=== PATIENT | female | born 1945 | race Caucasian/White ===

== ENCOUNTER → 2018-01-16 | Outpatient (CLI) | payer OTHER, MEDICAID ==
[~2018-01-16] MED LIST: ASPIR 8181 MG PO; CALCIUM + VITA1 EACH PO; CIPROFLOXACIN500 M1 PO; GLUCOTROL10 MG PO; HYDROCODON-ACE1 EAC7 PO; INVANZ 1GM/NS 101 GM IV; LOPID600 MG PO; NORCO 5-325 TA1 EACH PO; SYNTHROID25 MCG PO; TYLENOL EXTRA500 MG PO; VITAMIN D1000 UNI2 PO; WELLBUTRIN75 MG PO; ZANAFLEX4 MG PO; ZOCOR40 MG PO
--- NOTE | 2018-01-16 13:38 | 2DMMODE ---
[place] [address] 2 D/M-MODE ECHOCARDIOGRAM Name: GAVINOKELSEA L Room: [facility]#: [id number] Admission: 01/16/18 Attend Phys: Ghada Nobles Discharge: Date of : 49 Date of Service: 01/16/18 1338 Report #: [id number] THIS REPORT FOR: //name// APPROVED REPORT Study performed: 01/16/2018 09:51:54 EXAM: Comprehensive 2D, Doppler, and color-flow Echocardiogram Patient Location: Out-Patient Status: routine BSA: 2.00 HR: 97 bpm Other Information Study Quality: Fair Indications Peripheral Edema 2D Dimensions IVSd: 11.14 (7-11mm) LVOT Diam: 20.72 (18-24mm) LVDd: 42.14 mm PWd: 10.46 (7-11mm) Ascending Ao: 32.17 (22-36mm) LVDs: 25.91 (25-40mm) Aortic Root: 23.88 mm Volumes Left Atrial Volume (Systole) LA ESV Index: 10.20 mL/m2 Aortic Valve AoV Peak Quinn.: 1.25 m/s AO Peak Gr.: 6.22 mmHg LVOT Max P.76 mmHg AO Mean Gr.: 3.37 mmHg LVOT Mean P.78 mmHg LVOT Max V: 0.97 m/s AO V2 VTI: 21.03 cm LVOT Mean V: 0.61 m/s BERTA (VTI): 2.46 cm2 LVOT V1 VTI: 15.32 cm Mitral Valve E/A Ratio: 0.54 MV Decel. Time: 111.88 ms MV E Max Quinn.: 0.41 m/s MV PHT: 32.45 [place] [address] 2 D/M-MODE ECHOCARDIOGRAM Name: KELSEA MANCIA Room: [facility]#: [id number] Admission: 01/16/18 Attend Phys: Ghada Nobles Discharge: Date of : 49 Date of Service: 01/16/18 1338 Report #: [id number] MVA (PHT): 6.78 cm2 TDI E/Lateral E': 6.83 E/Medial E': 8.20 Medial E' Quinn.: 0.05 m/s Lateral E' Quinn.: 0.06 m/s Pulmonary Valve PV Peak Quinn.: 1.60 m/s PV Peak Gr.: 10.22 mmHg Left Ventricle The left ventricle is normal size. There is normal LV segmental wall motion. There is normal left ventricular wall thickness. Left ventricular systolic function is normal. The left ventricular ejection fraction is within the normal range. LVEF is 55-60%. Grade I - abnormal relaxation pattern. Right Ventricle The right ventricle is normal size. The right ventricular systolic function is normal. Atria The left atrium size is normal. The right atrium size is normal. Aortic Valve The Aortic valve is sclerotic. No aortic regurgitation is present. There is no aortic valvular stenosis. Mitral Valve The mitral valve is normal in structure. There is no mitral valve regurgitation noted. No evidence of mitral valve stenosis. Tricuspid Valve The tricuspid valve is normal in structure. There is no tricuspid valve regurgitation noted. Pulmonic Valve Pulmonic valve is not well visualized. There is no pulmonic valvular regurgitation. Great Vessels The aortic root is normal in size. IVC is not well [place] [address] 2 D/M-MODE ECHOCARDIOGRAM Name: CADEN MANCIAMELBA Hernandez [id number] Admission: 01/16/18 Attend Phys: Ghada Nobles Discharge: Date of : 49 Date of Service: 01/16/181337 Report #: [id number] There is no pericardial effusion. <Conclusion> LVEF is 55-60%. The Aortic valve is sclerotic. <ELECTRONICALLY SIGNED> By: Jcarlos Mathew MD, [facility] 01/16/18 1338 37 37 Jcarlos Mathew MD, FACC /INF
== END ==
LOC: M.CRD 09:34
DX: I35.8 Other nonrheumatic aortic valve disorders (principal); G83.9 Paralytic syndrome, unspecified; E11.42 Type 2 diabetes mellitus with diabetic polyneuropathy; G25.81 Restless legs syndrome; F33.9 Major depressive disorder, recurrent, unspecified; E03.9 Hypothyroidism, unspecified; E78.9 Disorder of lipoprotein metabolism, unspecified; E55.9 Vitamin D deficiency, unspecified; K58.9 Irritable bowel syndrome, unspecified

== ENCOUNTER 2018-09-23 20:48 | Observation (INO) | payer OTHER, MEDICAID ==
[~2018-09-23] VITALS: Ht 172.7 cm; Wt 85.3 kg
[~2018-09-23 20:48] MED LIST changes: +SYNTHROID25 MC1 PO; -SYNTHROID25 MCG PO; +WELLBUTRIN 75 M75 M1 PO; -WELLBUTRIN75 MG PO
[2018-09-23 20:50] VITALS: BP 141/57
[2018-09-23 21:16] LABS: ABSOLUTE BASOPHILS 0.1 thou/uL (0.0-0.2); ABSOLUTE EOSINOPHILS 0.2 thou/uL (0.0-0.7); ABSOLUTE LYMPHOCYTES 3.2 thou/uL (0.8-5.3); ABSOLUTE MONOCYTES 0.6 thou/uL (0.0-1.2); ABSOLUTE NEUTROPHILS 16.2 thou/uL (1.6-8.1); BASOPHILS 0.3 %; EOSINOPHILS 0.9 %; HEMATOCRIT 43.2 % (37.0-47.0); HEMOGLOBIN 14.2 gm/dL (12.0-15.0); LYMPHOCYTES 15.7 %; MCH 28.2 pg (26.0-34.0); MCHC 32.9 g/dL (28.0-37.0); MCV 85.7 fL (80.0-100.0); MONOCYTES 2.8 %; MPV 8.2 fl. (7.2-11.1); NUCLEATED RBCS 0 /100WBC; PLATELET COUNT* 448 thou/uL (150-400); POLYS 80.3 %; RBC 5.05 mil/uL (4.20-5.00); RDW-CV 14.3 % (10.5-14.5); WBC 20.2 thou/uL (4.0-11.0)
[2018-09-23 21:24] LABS: ANION GAP 11 mmol/L (7-16); BUN 27 mg/dL (7-18); CALCIUM 8.8 mg/dL (8.5-10.1); CHLORIDE 103 mmol/L (98-107); CO2 28 mmol/L (21-32); CREATININE 0.9 mg/dL (0.6-1.3); GLUCOSE 181 mg/dL (70-99); POTASSIUM 3.5 mmol/L (3.5-5.1); PROTIME 10.2 Seconds (9.20-11.50); SODIUM 142 mmol/L (136-145)
[2018-09-23] MEDS ORDERED: ULTRAM 50MG TAB50 MG PO (21:26)
[2018-09-23] MEDS ORDERED: ONDANSETRON HCL4 M2 PO (21:26)
[2018-09-23] MEDS ORDERED: LOPERAMIDE 2 MG2 M1 PO (21:27)
[2018-09-23] MEDS ORDERED: GLUCAGEN1 M2 IM (21:27)
[2018-09-23] MEDS ORDERED: GLUTOSE GEL 1515 G1 PO (21:27)
[2018-09-23] MEDS ORDERED: COLACE100 MG PO (21:28)
[2018-09-23] MEDS ORDERED: LASIX 20 MG TAB20 MG PO (21:28)
[2018-09-23] MEDS ORDERED: CALMOSEPTINE O3.5 GM (21:28)
[2018-09-23] MEDS ORDERED: BANOPHEN50 MG PO (21:28)
[2018-09-23] MEDS ORDERED: OCUVITE EYE +1 EACH PO (21:29)
[2018-09-23] MEDS ORDERED: MELATONIN3 MG PO (21:29)
[2018-09-23] MEDS ORDERED: FENOFIBRATE160 MG PO (21:30)
[2018-09-23] MEDS ORDERED: OYSTER SHELL 51 EAC1 PO (21:30)
[2018-09-23 21:41] LABS: ALBUMIN 3.6 g/dL (3.4-5.0); ALKALINE PHOSPHATASE 45 U/L (46-116); LIPASE 148 U/L (73-393); NT-PRO BRAIN NAT PEPTIDE 101 pg/mL (<300); SGOT 30 U/L (15-37); SGPT 43 U/L (30-65); TOTAL BILIRUBIN 0.6 mg/dL (<0.1-1.0); TOTAL PROTEIN 6.8 g/dL (6.4-8.2); TROPONIN-I LEVEL <0.06 ng/mL (<0.06)
[2018-09-23 21:45] LABS: PLATELET ESTIMATE ADEQUATE
[2018-09-23 23:30] LABS: URINE BILIRUBIN NEGATIVE (Negative); URINE BLOOD NEGATIVE (Negative); URINE CLARITY CLEAR; URINE COLOR YELLOW; URINE GLUCOSE-RANDOM NEGATIVE (Negative); URINE KETONES NEGATIVE (Negative); URINE LEUKOCYTES-REFLEX NEGATIVE (Negative); URINE NITRITE-REFLEX NEGATIVE (Negative); URINE PROTEIN NEGATIVE (Negative); URINE SPECIFIC GRAVITY 1.025 (1.005-1.030); URINE UROBILINOGEN 0.2 E.U./dl (0.2-1.0)
[2018-09-24 03:20] VITALS: BP 138/63
[2018-09-24 03:30] VITALS: BP 147/50
[2018-09-24 08:00] VITALS: BP 134/45
[2018-09-24 09:48] LABS: HEMATOCRIT 41.4 % (37.0-47.0); HEMOGLOBIN 13.7 gm/dL (12.0-15.0); MCH 28.8 pg (26.0-34.0); MCHC 33.1 g/dL (28.0-37.0); MCV 87.2 fL (80.0-100.0); MPV 8.1 fl. (7.2-11.1); RBC 4.76 mil/uL (4.20-5.00); RDW-CV 14.5 % (10.5-14.5); WBC 10.7 thou/uL (4.0-11.0)
[2018-09-24 10:02] LABS: CALCIUM 8.1 mg/dL (8.5-10.1); CREATININE 0.6 mg/dL (0.6-1.3); POTASSIUM 4.4 mmol/L (3.5-5.1)
[2018-09-24 12:00] VITALS: BP 143/52
--- NOTE | 2018-09-24 13:01 | 2DMMODE ---
[place] [address] 2 D/M-MODE ECHOCARDIOGRAM Name: KELSEA MANCIA David Room: [address] M.R.#: [id number] Admission: 09/24/18 Attend Phys: Wily Leon MD Discharge: Date of : 49 Date of Service: 09/24/18 1301 Report #: [id number] THIS REPORT FOR: //name// APPROVED REPORT Study performed: 09/24/2018 10:20:04 EXAM: Comprehensive 2D, Doppler, and color-flow Echocardiogram Patient Location: In-Patient BSA: 1.97 HR: 102 bpm BP: 134/45 mmHg Other Information Study Quality: Good Indications Arrythmias 2D Dimensions IVSd: 12.53 (7-11mm) LVOT Diam: 20.44 (18-24mm) LVDd: 44.33 mm PWd: 14.12 (7-11mm) Ascending Ao: 29.40 (22-36mm) LVDs: 20.53 (25-40mm) Aortic Root: 23.85 mm Volumes Left Atrial Volume (Systole) LA ESV Index: 11.30 mL/m2 Aortic Valve AoV Peak Quinn.: 1.17 m/s AO Peak Gr.: 5.51 mmHg LVOT Max P.14 mmHg AO Mean Gr.: 2.85 mmHg LVOT Mean P.89 mmHg LVOT Max V: 1.02 m/s AO V2 VTI: 19.46 cm LVOT Mean V: 0.62 m/s BERTA (VTI): 3.13 cm2 LVOT V1 VTI: 18.54 cm Mitral Valve E/A Ratio: 0.66 MV Decel. Time: 140.89 ms MV E Max Quinn.: 0.44 m/s MV PHT: 40.86 ms MVA (PHT): 5.38 [place]2 [place] [address] 2 D/M-MODE ECHOCARDIOGRAM Name: KELSEA MANCIA Room: [address]#: [id number] Admission: 09/24/18 Attend Phys: Wily Leon MD Discharge: Date of : 49 Date of Service: 09/24/18 1301 Report #: [id number] TDI E/Lateral E': 6.29 E/Medial E': 4.40 Medial E' Quinn.: 0.10 m/s Lateral E' Quinn.: 0.07 m/s Pulmonary Valve PV Peak Quinn.: 1.56 m/s PV Peak Gr.: 9.75 mmHg Left Ventricle The left ventricle is normal size. There is normal LV segmental wall motion. Mild concentric left ventricular hypertrophy. Left ventricular systolic function is normal. LVEF is 60-65%. Grade I - abnormal relaxation pattern. Right Ventricle The right ventricle is normal size. The right ventricular systolic function is normal. Atria The left atrium size is normal. The right atrium size is normal. Aortic Valve The aortic valve is normal in structure. No aortic regurgitation is present. There is no aortic valvular stenosis. Mitral Valve The mitral valve is normal in structure. There is no mitral valve regurgitation noted. No evidence of mitral valve stenosis. Tricuspid Valve The tricuspid valve is normal in structure. There is no tricuspid valve regurgitation noted. Pulmonic Valve The pulmonary valve is normal in structure. There is no pulmonic valvular regurgitation. Great Vessels The aortic root is normal in size. IVC is normal in size and collapses >50% with inspiration. Pericardium There is [place] [address] 2 D/M-MODE ECHOCARDIOGRAM Name: GAVINOKELSEA L Room: [address]#: [id number] Admission: 09/24/18 Attend Phys: Wily Leon MD Discharge: Date of : 49 Date of Service: 09/24/18 1301 Report #: [id number] <Conclusion> The left ventricle is normal size. Mild concentric left ventricular hypertrophy. Left ventricular systolic function is normal. LVEF is 60-65%. Grade I - abnormal relaxation pattern. IVC is normal in size and collapses >50% with inspiration. <ELECTRONICALLY SIGNED> By: Raheem Harvey MD, FACC 09/24/18 1301 1301 1301 Raheem Harvey MD, FACC /INF
--- NOTE | 2018-09-24 15:52 | EKG ---
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 : 1945 Requested By: Gloria Silvestre Order Number: [id number] MD: Raheem Harvey Measurements Intervals [place] Rate: 101 P: 38 WV: 157 QRS: -61 QRSD: 135 T: 27 QT: 398 QTc: 516 Interpretive Statements Sinus tachycardia Probable left atrial enlargement RBBB and LAFB Compared to ECG 06/15/2016 09:39:49 Left anterior fascicular block now present Sinus rhythm no longer present Possible ischemia no longer present Electronically Signed On 09-24-2018 15:52:17 CDT by Raheem Harvey [email or web address] <ELECTRONICALLY SIGNED> By: Raheem Harvey MD, FACC 09/24/18 1552 52 52 Raheem Harvey MD, [facility] /EPI
[2018-09-24 16:31] VITALS: BP 158/61
[2018-09-24 16:47] VITALS: BP 158/61
== END 2018-09-24 17:30 | disposition home or self-care (01) ==
LOC: M.ERS 20:48 → M.TBA-ER 09-24 02:11 → M.2W 09-24 02:11
PROVIDERS: Emergency Medicine; Internal Medicine; ADMIT Family Medicine
DX: R55 Syncope and collapse (principal); E86.9 Volume depletion, unspecified; I87.2 Venous insufficiency (chronic) (peripheral); N28.89 Other specified disorders of kidney and ureter; G11.4 Hereditary spastic paraplegia; E11.40 Type 2 diabetes mellitus with diabetic neuropathy, unspecified; K59.00 Constipation, unspecified; E87.6 Hypokalemia; D72.829 Elevated white blood cell count, unspecified; E78.5 Hyperlipidemia, unspecified; Z88.0 Allergy status to penicillin; Z90.710 Acquired absence of both cervix and uterus

== ENCOUNTER → 2019-12-05 | Outpatient (CLI) | payer MEDICARE, MEDICAID ==
[~2019-12-05] MED LIST changes: +BANOPHEN50 MG PO; +CALMOSEPTINE O3.5 GM; +COLACE100 MG PO; +FENOFIBRATE160 MG PO; +GLUCAGEN1 M2 IM; +GLUTOSE GEL 1515 G1 PO; +LASIX 20 MG TAB20 MG PO; +LOPERAMIDE 2 MG2 M1 PO; +MELATONIN3 MG PO; +OCUVITE EYE +1 EACH PO; +ONDANSETRON HCL4 M2 PO; +OYSTER SHELL 51 EAC1 PO; +ULTRAM 50MG TAB50 MG PO
== END ==
LOC: M.RAD 10:08
DX: Z12.31 Encounter for screening mammogram for malignant neoplasm of breast (principal)